=== PATIENT | male | born 1995 | race American Indian/Alaskan Native ===

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

== ENCOUNTER 2017-07-18 13:42 | Emergency (ER) | payer SELFPAY ==
[2017-07-18 13:56] VITALS: BP 131/71; PULSE 67; RESP 18; TEMP 98; O2SAT 98
--- NOTE | 2017-07-18 14:40 | ED PDOC ---
HPI: General Adult Time Seen by Provider: 07/18/17 14:07 Chief Complaint (Nursing): Male Genitourinary Chief Complaint (Provider): Anal pain, possible hemorrhoids History Per: Patient History/Exam Limitations: no limitations Onset/Duration Of Symptoms: Days Have you had recent travel within the past 21 days to any of the following countries: [place], [place], [place] or [place]?: No Current Symptoms Are (Timing): Still Present Additional Complaint(s): PT denies current pain. Pt states sometimes when he has a large DM and he has some bleeding when he wipes. Pt reports no sexual activity since previous visit. Past Medical History Reviewed: Historical Data, Nursing Documentation, Vital Signs Vital Signs: Last Vital Signs Temp 98 F 07/18/17 13:47 Pulse 67 07/18/17 13:47 Resp 18 07/18/17 13:47 BP 131/71 07/18/17 13:47 Pulse Ox 98 07/18/17 13:47 - Medical History PMH: Asthma Denies: Diabetes, Hepatitis, HIV, HTN, Seizures, Sexually Transmitted Disease - Surgical History Surgical History: No Surg Hx - Family History Family History: States: Unknown Family Hx - Living Arrangements Living Arrangements: With Family - Social History Current smoker - smoking cessation education provided: No - Immunization History Hx Tetanus Toxoid Vaccination: No Hx Influenza Vaccination: Yes Hx Pneumococcal Vaccination: No - Home Medications Home Medications: Ambulatory Orders Medication Instructions Recorded Amoxicillin/Clavulanate [Augmentin 1 tab PO BID #20 tab 04/21/16 875 MG-125 MG] Docusate [Colace] 100 mg PO BID #20 cap 10/08/16 Ibuprofen [Motrin] 600 mg PO Q8 PRN #21 tab 10/08/16 Lidocaine 2% Viscous 0.5 ml TOP DAILY PRN #10 ml 10/08/16 Hydrocortisone 2.5% (Rectal) 30 applic [place] BID #1 tube 07/18/17 [Anusol-HC] - Allergies Allergies/Adverse Reactions: Allergies Allergy/AdvReac Type Severity Reaction Status Date / Time shrimp Allergy SWELLING Verified 11/28/16 15:16 Physical Exam - Reviewed Nursing Documentation Reviewed: Yes Vital Signs Reviewed: Yes - Physical Exam Appears: Positive for: Well, Non-toxic, No Acute Distress Head Exam: Positive for: ATRAUMATIC, NORMAL INSPECTION, NORMOCEPHALIC Skin: Positive for: Normal Color, Warm, DRY Eye Exam: Positive for: Normal appearance ENT: Positive for: Normal ENT Inspection Neck: Positive for: Normal, Painless ROM Cardiovascular/Chest: Positive for: Regular Rate, Rhythm Respiratory: Positive for: Normal Breath Sounds. Negative for: Accessory Muscle Use, Respiratory Distress Back: Positive for: Normal Inspection Rectal: Positive for: Other ((+) soft, external hemorrhoids ) Extremity: Positive for: Normal ROM Neurologic/Psych: Positive for: Alert, Oriented - ECG O2 Sat by Pulse Oximetry: 98 Disposition - Clinical Impression Clinical Impression: External hemorrhoid - Patient ED Disposition Is Patient to be Admitted: No Counseled Patient/Family Regarding: Studies Performed, Diagnosis, Need For Followup, Rx Given - Disposition Disposition: Routine/Home Disposition Time: 14:43 Condition: GOOD Prescriptions: Hydrocortisone 2.5% (Rectal) [Anusol-HC] 30 applic TN BID #1 tube Instructions: Hemorrhoids (ED)
== END 2017-07-18 15:02 | disposition home or self-care (01) ==
LOC: H.ER 13:42
DX: K64.8 Other hemorrhoids (principal)

== ENCOUNTER 2017-10-30 08:36 | Emergency (ER) | payer MEDICAID ==
[2017-10-30 08:41] VITALS: BMI 21.8
[2017-10-30 08:43] VITALS: RESP 17
[2017-10-30 09:02] VITALS: O2SAT 100
[2017-10-30] MEDS ORDERED: Sodium Chloride 0.9% 1,000 ML IV STA (09:43)
[2017-10-30 10:02] LABS: BASO % 0.4 % (0.0-2.0); EOS # 0.2 K/uL (0.0-0.7); EOS % 1.7 % (0.0-4.0); HEMOGLOBIN 13.5 g/dL (12.0-18.0); LYMPH # 2.8 K/uL (1.0-4.3); LYMPH % 26.3 % (20.0-40.0); MEAN CELL VOLUME 83.4 fl (80.0-94.0); MEAN CORPUSCULAR HEMOGLOBIN 28.8 pg (27.0-31.0); MEAN CORPUSCULAR HGB CONC 34.5 g/dL (33.0-37.0); MEAN PLATELET VOLUME 6.6 fl (7.2-11.7); MONO # 1.4 K/uL (0.0-0.8); MONO % 12.7 % (0.0-10.0); NEUT # 6.3 K/uL (1.8-7.0); NEUT % 58.9 % (50.0-75.0); NRBC % 0.1 % (0.0-0.0); RBC 4.68 Mil/uL (4.40-5.90); RED CELL DISTRIBUTION WIDTH 14.6 % (11.5-14.5); WHITE BLOOD COUNT 10.7 K/uL (4.8-10.8)
[2017-10-30 10:21] LABS: ALB/GLOB RATIO 0.6 (1.0-2.1); ALBUMIN 3.9 g/dL (3.5-5.0); ALT/SGPT 16 U/L (21-72); AST/SGOT 43 U/L (17-59); BLOOD UREA NITROGEN 11 mg/dl (9-20); CALCIUM 9.6 mg/dL (8.4-10.2); GFR AFRICAN-AMERICAN > 60; GFR NON-AFRICAN AMERICAN > 60
--- NOTE | 2017-10-30 10:31 | ED PDOC ---
HPI: Psych/Substance Abuse Time Seen by Provider: 10/30/17 09:15 Chief Complaint (Nursing): Substance Abuse Chief Complaint (Provider): Substance Abuse History Per: Patient History/Exam Limitations: no limitations Onset/Duration Of Symptoms: Days (x2 days) Additional Complaint(s): 22 y/o male presents to the ED for evaluation of substance abuse. Patient reports using Meth 2 days ago and since then has not been able to sleep. Patient is requesting something to help him sleep. Denies homicidal or suicidal ideation or any further medical complaints. Past Medical History Reviewed: Historical Data, Nursing Documentation, Vital Signs Vital Signs: Last Vital Signs Temp 99.1 F 10/30/17 08:41 Pulse 102 H 10/30/17 08:53 Resp 17 10/30/17 08:41 BP 135/79 10/30/17 08:41 Pulse Ox 100 10/30/17 08:53 - Medical History PMH: Asthma Denies: Diabetes, Hepatitis, HIV, HTN, Seizures, Sexually Transmitted Disease - Surgical History Surgical History: No Surg Hx - Family History Family History: States: Unknown Family Hx - Social History Current smoker - smoking cessation education provided: Yes (Light smoker< 10cigarettes daily) Alcohol: None Drugs: Methamphetamine - Immunization History Hx Tetanus Toxoid Vaccination: No Hx Influenza Vaccination: Yes Hx Pneumococcal Vaccination: No - Home Medications Home Medications: Ambulatory Orders Medication Instructions Recorded Amoxicillin/Clavulanate [Augmentin 1 tab PO BID #20 tab 04/21/16 875 MG-125 MG] Docusate [Colace] 100 mg PO BID #20 cap 10/08/16 Ibuprofen [Motrin] 600 mg PO Q8 PRN #21 tab 10/08/16 Lidocaine 2% Viscous 0.5 ml TOP DAILY PRN #10 ml 10/08/16 Hydrocortisone 2.5% (Rectal) 30 applic [place] BID #1 tube 07/18/17 [Anusol-HC] - Allergies Allergies/Adverse Reactions: Allergies Allergy/AdvReac Type Severity Reaction Status Date / Time shrimp Allergy SWELLING Verified 11/28/16 15:16 Review of Systems ROS Statement: Except As Marked, All Systems Reviewed And Found Negative (As pee HPI, otherwise negative) Psych: Positive for: Other (Substance abuse ). Negative for: Suicidal ideation (or homicidal ideation) Physical Exam - Reviewed Nursing Documentation Reviewed: Yes Vital Signs Reviewed: Yes - Physical Exam Appears: Positive for: Well, Non-toxic, No Acute Distress Head Exam: Positive for: ATRAUMATIC, NORMAL INSPECTION, NORMOCEPHALIC Skin: Positive for: Normal Color, Warm, Dry Eye Exam: Positive for: EOMI, Normal appearance, PERRL ENT: Positive for: Normal ENT Inspection Neck: Positive for: Normal, Painless ROM, Supple Cardiovascular/Chest: Positive for: Tachycardia Respiratory: Positive for: Normal Breath Sounds. Negative for: Accessory Muscle Use, Respiratory Distress Gastrointestinal/Abdominal: Positive for: Normal Exam, Bowel Sounds, Soft. Negative for: Tenderness Back: Positive for: Normal Inspection Extremity: Positive for: Normal ROM. Negative for: Deformity Neurologic/Psych: Positive for: Alert, Oriented (x3) - Laboratory Results Result Diagrams: 10/30/17 09:56 10/30/17 09:56 - ECG O2 Sat by Pulse Oximetry: 100 (RA) Pulse Ox Interpretation: Normal Medical Decision Making Medical Decision Making: Time: 09:43 Initial Impression: Meth abuse Plan: EKG drug screen CBC w/ differential Sodium chloride 1L IV Urinalysis Crisis evaluation Pt cleared by Crisis, dx: substance abuse. Scribe Attestation: Documented by Elizabeth Narvaez acting as a scribe for Aurelia Schmitt MD. Scribe Attestation: All medical record entries made by the Scribe were at my direction and personally dictated by me. I have reviewed the chart and agree that the record accurately reflects my personal performance of the history, physical exam, medical decision making, and the department course for this patient. I have also personally directed, reviewed, and agree with the discharge instructions and disposition. Disposition - Clinical Impression Clinical Impression: Substance abuse - Disposition Referrals: [facility] [Outside] Disposition: Routine/Home Disposition Time: 16:50 Condition: IMPROVED Instructions: Drug Abuse and Drug Addiction (DC), Drug Abuse Treatment Forms: [employer] (Kazakh)
[2017-10-30 15:13] LABS: URINE BILIRUBIN NEGATIVE (NEGATIVE); URINE BLOOD NEGATIVE (NEGATIVE); URINE CLARITY SLIGHTY-CLOUDY (Clear); URINE COLOR YELLOW (YELLOW); URINE GLUCOSE (UA) NEG (Normal); URINE LEUKOCYTE ESTERASE NEG Leu/uL (Negative); URINE PROTEIN 30 mg/dL (NEGATIVE); URINE UROBILINOGEN 0.2-1.0 mg/dL (0.2-1.0)
[2017-10-30 16:19] LABS: BARBITURATES, UR NEGATIVE (NEGATIVE); BENZODIAZEPINES, UR NEGATIVE (NEGATIVE); OPIATES, UR NEGATIVE (NEGATIVE); PHENCYCLIDINE, UR NEGATIVE (NEGATIVE)
[2017-10-30 17:50] VITALS: BP 122/70; PULSE 89; TEMP 98
--- NOTE | 2017-10-30 22:00 | CARD ---
APPROVED REPORT EKG Measurement Heart [id number] <Conclusion> Normal sinus rhythm Normal ECG
== END 2017-10-30 17:00 | disposition home or self-care (01) ==
LOC: H.ER 08:36
DX: F15.10 Other stimulant abuse, uncomplicated (principal); F17.210 Nicotine dependence, cigarettes, uncomplicated; J45.909 Unspecified asthma, uncomplicated
CPT/HCPCS: 80053; 80320; 80324; 80345; 80346; 80349; 80353; 80358; 80361; 81003; 83992; 85025; 93005; 99283; J7040

== ENCOUNTER 2017-10-31 00:03 | Emergency (ER) | payer MEDICAID ==
[2017-10-31 00:06] VITALS: BMI 21.8
[2017-10-31 00:25] VITALS: RESP 16; TEMP 98.7; O2SAT 100
--- NOTE | 2017-10-31 01:01 | ED PDOC ---
HPI: Psych/Substance Abuse Time Seen by Provider: 10/31/17 00:36 Chief Complaint (Nursing): Palpitations Chief Complaint (Provider): unable to sleep History Per: Patient History/Exam Limitations: no limitations Onset/Duration Of Symptoms: Days (2) Current Symptoms Are (Timing): Still Present Additional Complaint(s): 22 y/o male presents for evaluation of not being able to sleep x 2 days. Patient states he "took a bad drug" and has not been able to sleep since then. Patient states the drug was Meth. Patient notes palpitations on-and-off, none at present; but states his major issue is not being able to sleep. Denies fever , headache, dizziness, extremity numbness/weakness, chest pain, shortness of breath, palpitations, suicidal/homicidal ideations. Past Medical History Reviewed: Historical Data, Nursing Documentation, Vital Signs Vital Signs: Last Vital Signs Temp 98.7 F 10/31/17 00:22 Pulse 105 H 10/31/17 00:22 Resp 16 10/31/17 00:22 BP 139/76 10/31/17 00:22 Pulse Ox 100 10/31/17 00:22 - Medical History PMH: Asthma Denies: Diabetes, Hepatitis, HIV, HTN, Seizures, Sexually Transmitted Disease - Family History Family History: States: Unknown Family Hx - Immunization History Hx Tetanus Toxoid Vaccination: No Hx Influenza Vaccination: Yes Hx Pneumococcal Vaccination: No - Home Medications Home Medications: Ambulatory Orders Medication Instructions Recorded Amoxicillin/Clavulanate [Augmentin 1 tab PO BID #20 tab 04/21/16 875 MG-125 MG] Docusate [Colace] 100 mg PO BID #20 cap 10/08/16 Ibuprofen [Motrin] 600 mg PO Q8 PRN #21 tab 10/08/16 Lidocaine 2% Viscous 0.5 ml TOP DAILY PRN #10 ml 10/08/16 Hydrocortisone 2.5% (Rectal) 30 applic [place] BID #1 tube 07/18/17 [Anusol-HC] - Allergies Allergies/Adverse Reactions: Allergies Allergy/AdvReac Type Severity Reaction Status Date / Time shrimp Allergy SWELLING Verified 11/28/16 15:16 Review of Systems ROS Statement: Except As Marked, All Systems Reviewed And Found Negative Physical Exam - Reviewed Nursing Documentation Reviewed: Yes Vital Signs Reviewed: Yes - Physical Exam Appears: Positive for: Well, Non-toxic, No Acute Distress Head Exam: Positive for: ATRAUMATIC, NORMAL INSPECTION, NORMOCEPHALIC Skin: Positive for: Normal Color Eye Exam: Positive for: Normal appearance ENT: Positive for: Normal ENT Inspection Cardiovascular/Chest: Positive for: Regular Rate, Rhythm Respiratory: Positive for: Normal Breath Sounds Gastrointestinal/Abdominal: Positive for: Normal Exam Back: Positive for: Normal Inspection Extremity: Positive for: Normal ROM Neurologic/Psych: Positive for: Alert, Oriented - ECG ECG: Positive for: Viewed By Me (reviewed by ED attending) ECG Rhythm: Positive for: Sinus Rhythm O2 Sat by Pulse Oximetry: 100 - Progress ED Course And Treament: Chart reviewed, patient seen in ED for same less than 24 hours ago; had labs, crisis eval Patient given Benadryl PO; advised to follow up with PMD 2-3 days. Return precautions given. Disposition - Clinical Impression Clinical Impression: Substance abuse, Unable to sleep - Patient ED Disposition Is Patient to be Admitted: No Counseled Patient/Family Regarding: Studies Performed, Diagnosis, Need For Followup - Disposition Referrals: [facility] [Outside] Disposition: Routine/Home Disposition Time: 01:05 Condition: IMPROVED Instructions: Insomnia, Drug Abuse and Drug Addiction (DC)
[2017-10-31 02:36] VITALS: BP 118/64
[2017-10-31 04:58] VITALS: PULSE 85
--- NOTE | 2017-10-31 21:04 | CARD ---
APPROVED REPORT EKG Measurement Heart [id number] <Conclusion> Normal sinus rhythm Normal ECG
== END 2017-10-31 03:05 | disposition home or self-care (01) ==
LOC: H.ER 00:03
DX: F19.10 Other psychoactive substance abuse, uncomplicated (principal); J45.909 Unspecified asthma, uncomplicated

== ENCOUNTER 2018-04-21 15:41 | Emergency (ER) | payer MEDICAID, OTHER ==
[2018-04-21 15:42] VITALS: BMI 21.8
[2018-04-21 15:54] VITALS: BP 118/75; PULSE 72; RESP 16; TEMP 97.7; O2SAT 100
--- NOTE | 2018-04-21 16:05 | ED PDOC ---
HPI: General Adult Time Seen by Provider: 04/21/18 15:56 Chief Complaint (Nursing): Abnormal Skin Integrity Chief Complaint (Provider): groin pain History Per: Patient History/Exam Limitations: no limitations Onset/Duration Of Symptoms: Days (x3) Current Symptoms Are (Timing): Still Present Additional Complaint(s): Kirk Hernandez is a 22 year old male, with a past medical history of asthma, who presents to the emergency department complaining of a painful ingrown hair to left groin area ongoing for x3 days. He took Motrin which did help the pain. He denies any drainage or bleeding from affected area and he denies any fever or chills. PMD: None Past Medical History Reviewed: Historical Data, Nursing Documentation, Vital Signs Vital Signs: Last Vital Signs Temp 97.7 F 04/21/18 15:51 Pulse 72 04/21/18 15:51 Resp 16 04/21/18 15:51 BP 118/75 04/21/18 15:51 Pulse Ox 100 04/21/18 16:10 - Medical History PMH: Asthma - Surgical History Surgical History: No Surg Hx - Family History Family History: States: No Known Family Hx - Social History Current smoker - smoking cessation education provided: Yes (smokes on occasion) Alcohol: None Drugs: Denies - Home Medications Home Medications: Ambulatory Orders Medication Instructions Recorded Amoxicillin/Clavulanate [Augmentin 1 tab PO BID #14 tab 04/21/18 875 MG-125 MG] Clindamycin [Cleocin] 300 mg PO QID #28 cap 04/21/18 Ibuprofen [Motrin] 600 mg PO Q6 PRN #20 tab 04/21/18 - Allergies Allergies/Adverse Reactions: Allergies Allergy/AdvReac Type Severity Reaction Status Date / Time shrimp Allergy SWELLING Verified 11/28/16 15:16 Review of Systems ROS Statement: Except As Marked, All Systems Reviewed And Found Negative Constitutional: Negative for: Fever, Chills Genitourinary Male: Positive for: Other (left groin pain) Physical Exam - Reviewed Nursing Documentation Reviewed: Yes Vital Signs Reviewed: Yes - Physical Exam Appears: Positive for: Well, Non-toxic, No Acute Distress Head Exam: Positive for: NORMOCEPHALIC Skin: Positive for: Normal Color. Negative for: Rash Eye Exam: Positive for: Normal appearance Respiratory: Negative for: Respiratory Distress Male Genital Exam: Positive for: other (3 cm indurated nonfluctuant abscess to left suprapubic region with no central pointing. No palpable inguinal lymphadenopathy) Extremity: Positive for: Normal ROM (upper and lower extremities). Negative for : Deformity Lymphatic: Negative for: Adenopathy Neurologic/Psych: Positive for: Alert, Oriented - ECG O2 Sat by Pulse Oximetry: 100 (RA) Pulse Ox Interpretation: Normal Medical Decision Making Medical Decision Making: Time: 15:56 Initial Impression: abscess Initial Plan: --Motrin tab 600 mg PO Abscess is too indurated with no fluctuance, no incision and drainage indicated at this time. -Upon provider evaluation patient is medically stable, and requires no further treatment in the ED at this time. Patient will be discharged home with Rx for Motrin, Augmentin and Clindamycin. Patient was instructed to apply warm compresses with Epsom salts to affected area as often as possible. Counseling was provided and all questions were answered regarding diagnosis. There is agreement to discharge plan. Return if symptoms persist or worsen. Scribe Attestation: Documented by Kali Khan, acting as a scribe for Earlene Person PA-C Provider Scribe Attestation: All medical record entries made by the Scribe were at my direction and personally dictated by me. I have reviewed the chart and agree that the record accurately reflects my personal performance of the history, physical exam, medical decision making, and the department course for this patient. I have also personally directed, reviewed, and agree with the discharge instructions and disposition. Disposition - Clinical Impression Clinical Impression: Abscess - Patient ED Disposition Is Patient to be Admitted: No Counseled Patient/Family Regarding: Diagnosis, Need For Followup, Rx Given - Disposition Referrals: [facility] [Outside] Disposition: Routine/Home Disposition Time: 16:16 Condition: STABLE Additional Instructions: Apply warm compresses with Epsom salts to affected area as often as possible. Take prescription meds as directed. Have the wound reevaluated in 2-3 days. Prescriptions: Amoxicillin/Clavulanate [Augmentin 875 MG-125 MG] 1 tab PO BID #14 tab Clindamycin [Cleocin] 300 mg PO QID #28 cap Ibuprofen [Motrin] 600 mg PO Q6 PRN #20 tab PRN Reason: Pain, Moderate (4-7) Instructions: Skin Abscess Forms: [employer] (Danish)
== END 2018-04-21 16:25 | disposition home or self-care (01) ==
LOC: H.ER 15:41
DX: L02.214 Cutaneous abscess of groin (principal); F17.200 Nicotine dependence, unspecified, uncomplicated; J45.909 Unspecified asthma, uncomplicated

== ENCOUNTER 2018-10-04 10:01 | Emergency (ER) | payer OTHER ==
[2018-10-04 10:02] VITALS: BMI 21.8
[2018-10-04 10:05] VITALS: RESP 18; O2SAT 100
--- NOTE | 2018-10-04 11:23 | ED PDOC ---
HPI: Male Pain Time Seen by Provider: 10/04/18 10:22 Chief Complaint (Nursing): Male Genitourinary Chief Complaint (Provider): Penile discharge and dysuria History Per: Patient History/Exam Limitations: no limitations Additional Complaint(s): 23 y/o M with no significant PMH who presents with penile discharge and dysuria since yesterday. Pt states that he noted a white/yellow discharge coming from his penis yesterday evening and burning with urination. Denies fever, chills, night sweats, abdominal pain, N/V, diarrhea. Pt admits to having had Chlamydia in the past, which is why he knows the symptoms. Past Medical History Reviewed: Historical Data, Nursing Documentation, Vital Signs Vital Signs: Last Vital Signs Temp 97.7 F 10/04/18 10:04 Pulse 83 10/04/18 10:04 Resp 18 10/04/18 10:04 BP 112/64 10/04/18 10:04 Pulse Ox 100 10/04/18 10:04 - Medical History PMH: Asthma Denies: Diabetes, Hepatitis, HIV, HTN, Seizures, Sexually Transmitted Disease - Family History Family History: States: Unknown Family Hx - Immunization History Hx Tetanus Toxoid Vaccination: No Hx Influenza Vaccination: Yes Hx Pneumococcal Vaccination: No - Home Medications Home Medications: Ambulatory Orders Medication Instructions Recorded Amoxicillin/Clavulanate [Augmentin 1 tab PO BID #14 tab 04/21/18 875 MG-125 MG] Clindamycin [Cleocin] 300 mg PO QID #28 cap 04/21/18 Ibuprofen [Motrin] 600 mg PO Q6 PRN #20 tab 04/21/18 - Allergies Allergies/Adverse Reactions: Allergies Allergy/AdvReac Type Severity Reaction Status Date / Time shrimp Allergy SWELLING Verified 11/28/16 15:16 Review of Systems Constitutional: Negative for: Fever, Chills Gastrointestinal: Negative for: Nausea, Vomiting, Diarrhea Genitourinary Male: Positive for: Dysuria, Penile Discharge Physical Exam - Reviewed Nursing Documentation Reviewed: Yes Vital Signs Reviewed: Yes - Physical Exam Appears: Positive for: Well Skin: Positive for: Normal Color Male Genital Exam: Positive for: urethral discharge (mild mucopurulent discharge at urethral meatus. 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).) - ECG O2 Sat by Pulse Oximetry: 100 Medical Decision Making Medical Decision Making: Rocephin 250mg IM x 1 Azithromycin 1G PO x 1 Urine dip, U/A and Urine culture Urine dip: LE large, nitrate negative Safe sex practices advised and STD prevention discussed Disposition - Clinical Impression Clinical Impression: Sexually transmitted disease - Patient ED Disposition Is Patient to be Admitted: No - Disposition Referrals: Clotilde Finch MD [Family Provider] - Disposition: Routine/Home Disposition Time: 12:05 Condition: STABLE Additional Instructions: Refrain from sexual activity for the next 7 days. You will be contacted with the results of your cultures in a couple of days. Return to ER if you develop fevers, chills, night sweats. You are encouraged to practice safe sex for your health. Instructions: Sexually-Transmitted Diseases (DC) Forms: [employer] (Citizen [place]) Print Language: VIETNAMESE
[2018-10-04] MEDS ORDERED: cefTRIAXone (Rocephin) 250 mg Inj ONE (11:25)
[2018-10-04] MEDS ORDERED: Sterile Water 10 ML IV ONE (11:26)
[2018-10-04] MEDS: cefTRIAXone (Rocephin) 250 mg Inj IM ONE (11:29)
[2018-10-04 12:12] LABS: SQUAMOUS EPITHIAL < 1 /hpf (0-5); URINE BACTERIA RARE (<OCC); URINE BILIRUBIN NEGATIVE (NEGATIVE); URINE BLOOD NEGATIVE (NEGATIVE); URINE CLARITY SLIGHTY-CLOUDY (Clear); URINE COLOR YELLOW (YELLOW); URINE GLUCOSE (UA) NEG (NEGATIVE); URINE LEUKOCYTE ESTERASE MOD Leu/uL (Negative); URINE PROTEIN NEGATIVE (NEGATIVE)
[2018-10-04 12:26] VITALS: BP 118/77; PULSE 76; TEMP 97.5
== END 2018-10-04 12:25 | disposition home or self-care (01) ==
LOC: H.ER 10:01
DX: Z11.3 Encounter for screening for infections with a predominantly sexual mode of transmission (principal)
CPT/HCPCS: 81003; 87086; 87491; 87591; 96372; 99282; J0696